=== PATIENT | female | born 1955 | race Caucasian/White ===

== ENCOUNTER 2016-05-18 15:27 | Day surgery (SDC) | payer OTHER ==
[~2016-05-18] VITALS: Ht 157.5 cm; Wt 64.3 kg
[~2016-05-18 15:27] MED LIST: HYDR-3498 PO; ONDA-43 PO; TRAM50TA2 PO
[2016-05-18 16:03] VITALS: Ht 157.5 cm; Wt 64.3 kg
[2016-05-18 16:19] VITALS: BP 122/68; PULSE 93; RESP 18
[2016-05-18] MEDS ORDERED: MIDAZOLAM 1 MG/ML 2 ML INJ ONE ×2 (17:13→17:14)
[2016-05-18] MEDS ORDERED: FENTAnyl 50 MCG/ML VIAL ONE (17:14)
[2016-05-18 17:35] VITALS: BP 118/63; PULSE 87; RESP 18
--- NOTE | 2016-05-18 18:53 | GILP ---
DATE OF PROCEDURE: NAME OF PROCEDURE: Colonoscopy. SURGEON: Jace Blake MD PREOPERATIVE DIAGNOSIS: Screening colonoscopy. POSTOPERATIVE DIAGNOSES: 1. Colonoscopy all the way to the cecum. 2. Poor prep making the exam suboptimal. 3. Internal hemorrhoids. 4. No gross neoplasm was identified. INDICATION FOR THE PROCEDURE: Ms. Cristina Gamez is a 60-year-old female patient who was scheduled for screening colonoscopy. The procedure and possible complications are well explained to the patient. The patient understood and consented to the procedure. DESCRIPTION OF PROCEDURE: Under the influence of fentanyl and Versed, the colonoscope was carefully introduced in the rectum and, under direct vision, it was advanced all the way to the cecum. FINDINGS: The patient had poor prep making the exam suboptimal. The patient was noted to have inte rnal hemorrhoids. No gross neoplasm was identified. She tolerated the procedure very well and there was no complication from the procedure. At the end of the procedure, she was awake with stable vital signs and she was discharged home to the care of h er family. IMPRESSION: 1. Colonoscopy all the way to the cecum. 2. Poor prep making the exam somewhat suboptimal. 3. Internal hemorrhoids. 4. No gross neoplasm was identified. PLAN: The patient will need repeat colonoscopy with better preparation in 2 years. Dictated By: JACE ZELAYA/NIKKI Conf#: [id number] DID#: [id number] CC: JACE BLAKE MD;*EndCC*
== END 2016-05-18 17:54 | disposition home or self-care (01) ==
LOC: GIL 15:27
PROVIDERS: ATTEND Internal Medicine Gastroenterology
DX: Z12.11 Encounter for screening for malignant neoplasm of colon (principal); K64.8 Other hemorrhoids
CPT/HCPCS: 45378; J2250; J3010

== ENCOUNTER 2016-08-14 09:03 | Emergency (ER) | payer OTHER ==
[~2016-08-14] VITALS: Ht 160 cm; Wt 62.0 kg
[2016-08-14 09:07] VITALS: Ht 160 cm; Wt 62.0 kg
--- NOTE | 2016-08-14 10:29 | RADRPT ---
PROCEDURE: XR Chest. CLINICAL INDICATION: Shortness of breath TECHNIQUE: A single AP view of the chest was obtained. COMPARISON: Chest x-ray dated 02/24/2015 FINDINGS: No focal airspace opacification, pleural effusion or pneumothorax is seen. The cardiomediastinal si lhouette is within normal limits for size. The osseous structures are unremarkable. IMPRESSION: No radiographic evidence of acute cardiopulmonary disease. RPTAT: HH .Deja Ray MD, MD Date Time Electronically viewed and signed by .Deja Ray MD, on 08/14/2016 10:29 .G/
--- NOTE | 2016-08-14 10:36 | ERD ---
ER Documentation Chief Complaint Date/Time DATE: 08/14/16 TIME: 10:34 Chief Complaint cough x 3 weeks HPI This a 61-year-old female who presents to the emergency department today complaining of cough for the past 3 weeks. Patient states the cough is worse at night however she is tried TheraFlu with no improvement in symptoms. Denies any fevers or chills. Denies any sore throat. Denies any sick contacts, foreign travel or prolonged travel. ROS All systems reviewed and are negative except as per history of present illness. Medications Home Meds Active Scripts Cetirizine Hcl* (Zyrtec*) 10 Mg Capsule, 10 MG PO DAILY, #14 TAB.CHEW Prov:BASILIO MONROY PA-C 08/14/16 Fluticasone Propionate (Flonase Allergy Relief) 9.9 Ml [place].susp, 2 SPRAY NASAL DAILY, #1 BOTTLE TO EACH NOSTRIL Prov:BASILIO MONROY PA-C 08/14/16 Guaifenesin-Dextromethorphan* (Robitussin* DM) 100MG/10MG/5ML Syrup, 10 ML PO Q6H Y for COUGH for 5 Days, ML Prov:BASILIO MONROY PA-C 08/14/16 Azithromycin* (Zithromax*) 250 Mg Tablet, 250 MG PO .ZPACK DIRECTED, #6 TAB TAKE 500 MG (2 TABS) THE FIRST DAY THEN 250 MG (1 TAB) DAYS 2-5 Prov:BASILIO MONROY PA-C 08/14/16 Reported Medications [None] No Conflict Check 05/18/16 Allergies Allergies: Coded Allergies: Penicillins (Verified Allergy, Mild, RASH, 06/12/15) PMhx/Soc History of Surgery: Yes (CHOLEYCSTECTOMY, C Section.) Anesthesia Reaction: No Hx Neurological Disorder: No Hx Respiratory Disorders: No Hx Cardiac Disorders: No Hx Psychiatric Problems: No Hx Miscellaneous Medical Probl: No Hx Alcohol Use: No Hx Substance Use: No Hx Tobacco Use: No Smoking Status: Never smoker Physical Exam Vitals Vital Signs Date Time Temp Pulse Resp B/P Pulse Ox O2 Delivery O2 Flow Rate FiO2 08/14/16 09:07 97.8 99 20 150/56 96 Physical Exam Const: NAD Head: Atraumatic Eyes: Normal Conjunctiva ENT: Normal External Ears, Nose and Mouth. Neck: Full range of motion..~ No meningismus. Resp: Clear to auscultation bilaterally. No absent breath sounds. No wheezing. Cardio: Regular rate and rhythm, no murmurs Skin: No petechiae or rashes Back: No midline or flank tenderness Ext: No cyanosis, or edema Neur: Awake and alert Psych: Normal Mood and Affect Results 24 hrs DIAGNOSTIC IMAGING REPORT Patient: ITZEL HUTCHISON : 1955 Age: 61 Sex: F MR #: [id number] DOS: 08/14/16 0000 Ordering MD: BASILIO MONROY PA-C Location: [facility] Room/Bed: PROCEDURE: XR Chest. CLINICAL INDICATION: Shortness of breath TECHNIQUE: A single AP view of the chest was obtained. COMPARISON: Chest x-ray dated 02/24/2015 FINDINGS: No focal airspace opacification, pleural effusion or pneumothorax is seen. The cardiomediastinal silhouette is within normal limits for size. The osseous structures are unremarkable. IMPRESSION: No radiographic evidence of acute cardiopulmonary disease. RPTAT: HH .Deja Ray MD, Date Time Electronically viewed and signed by .Deja Ray MD, MD on 08/14/2016 10 :29 .G/ CC: BASILIO MONROY PA-C Procedures/[facility] This a 61-year-old female who presents the emergency department today complaining of cough for the past 3 weeks. Given patient's age and complaints of cough for the past 3 weeks I did obtain a chest x-ray Chest x-ray is negative. There is no radiographic evidence of acute cardiopulmonary disease. No focal airspace opacification, pleural effusion or pneumothorax Patient is afebrile and otherwise well-appearing. She is not tachycardic and her oxygen saturation is 96%. She does not smoke cigarettes. Low suspicion for PE. Symptoms at this time is consistent with cough possibly related to bronchitis versus viral URI versus pertussis. I have low suspicion for strep pharyngitis , peritonsillar abscess, retropharyngeal abscess, otitis media, PNA, sinusitis, abscess, meningitis, sepsis, or other acute infectious bacterial process. Patient understood and agreed with the plan. Given patient's duration of symptoms I will treat her with azithromycin in addition to Robitussin, Zyrtec and Flonase. At this time the patient is stable for discharge and outpatient management. Patient should follow up with their PCP in the next 1-2 days. They may return to the emergency department sooner for any persistent or worsening of symptoms. Patient understood and agreed with the plan. Departure Diagnosis: Primary Impression: Cough Condition: Fair BASILIO MONROY PA-C August 14, 2016 10:36
[2016-08-14] MEDS ORDERED: AZIT250T94 PO (10:38)
[2016-08-14] MEDS ORDERED: UDROBDM PO (10:39)
[2016-08-14] MEDS ORDERED: FLUT9.9S NASAL (10:39)
[2016-08-14] MEDS ORDERED: CETI10CA PO (10:39)
== END 2016-08-14 10:50 | disposition home or self-care (01) ==
LOC: FTE 09:03
DX: R05 Cough (principal)
CPT/HCPCS: 71010; Z7502

== ENCOUNTER 2016-08-19 07:45 | Emergency (ER) | payer OTHER ==
[~2016-08-19] VITALS: Ht 157.5 cm; Wt 65.0 kg
[~2016-08-19 07:45] MED LIST changes: +AZIT250T94 PO; +CETI10CA PO; +FLUT9.9S NASAL; -HYDR-3498 PO; -ONDA-43 PO; -TRAM50TA2 PO; +UDROBDM PO
[2016-08-19 07:48] VITALS: Ht 157.5 cm; Wt 65.0 kg
[2016-08-19] MEDS ORDERED: ALBUTEROL 0.083% (NEB) 2.5 MG/3 ML AMP HHN STA (08:13)
[2016-08-19] MEDS ORDERED: IPRATROPIUM (NEB) 0.5 MG/2.5 ML AMP HHN ONE (08:30)
--- NOTE | 2016-08-19 09:48 | RADRPT ---
PROCEDURE: Chest Radiograph. CLINICAL INDICATION: Shortness of breath TECHNIQUE: Single frontal chest radiograph. COMPARISON: Chest radiograph 02/24/2015 FINDINGS: The cardiomediastinal silhouette is within normal limits. No infiltrate or effusion is seen. Th e bones are intact. IMPRESSION: 1. Unremarkable chest radiograph. RPTAT: KK .Scooter Mosqueda MD, MD Date Time Electronically viewed and signed by .Scooter Mosqueda MD, on 08/19/2016 09:48 .B/
--- NOTE | 2016-08-19 09:49 | RADRPT ---
PROCEDURE: X-ray soft tissue neck. CLINICAL INDICATION: Foreign body sensation. TECHNIQUE: Two views of the soft tissues of the neck are available for review. COMPARISON: None available FINDINGS: The epiglottis is normal. The airway is clear. The oropharynx appears normal. No radiopaque foreign bodies are identified. No other abnormality is seen. The osseous structures are unremarkable. IMPRESSION: 1. No evidence of radiopaque foreign body. RPTAT: KK .Scooter Mosqueda MD, Date Time Electronically viewed and signed by .Scooter Mosqueda MD, on 08/19/2016 09:49 .B/
[2016-08-19] MEDS ORDERED: D-ME473S18 PO (10:03)
[2016-08-19] MEDS ORDERED: MED4DP PO (10:03)
[2016-08-19] MEDS ORDERED: ALBU8.5H3 INH (10:03)
--- NOTE | 2016-08-19 10:08 | ERD ---
ER Documentation Chief Complaint Date/Time DATE: 08/19/16 TIME: 10:06 Chief Complaint cough x 2 weeks, seen here tuesday HPI This is a 61-year-old female presents to the ER with a cough for the last 2 weeks. She states she is here in Tuesday, tried the azithromycin however did not work. Cough is productive, worse at night. Patient states that she feels very tired secondary to coughing a lot. She does not have any fevers or chills. She does not have a sore throat or ear pain. Patient does not have any chest pain or shortness of breath. She does admit to some throat discomfort and states that she feels as if there is something in her throat. She does not have any problems swallowing. ROS 12 point review of systems was done, all negative except per HPI. Medications Home Meds Active Scripts Albuterol Sulfate* (Proair HFA*) 8.5 Gm Hfa.aer.ad, 2 PUFF INH Q4, #1 INHALER Prov:FANTASMA CURIEL 08/19/16 Dextromethorphan Hb-Promethazine Hcl (Promethazine DM Syrup) 473 Ml Syrup, 10 ML PO Q6H Y for COUGH, #4 OZ Prov:FANTASMA CURIEL 08/19/16 Methylprednisolone* (Medrol* DOSE PACK) 4 Mg/Dose-Pack Tab.ds.pk, 4 MG PO . DIRECTED for 6 Days, PACKET Prov:FANTASMA CURIEL 08/19/16 Cetirizine Hcl* (Zyrtec*) 10 Mg Capsule, 10 MG PO DAILY, #14 TAB.CHEW Prov:BASILIO MNOROY PA-C 08/14/16 Fluticasone Propionate (Flonase Allergy Relief) 9.9 Ml [place].susp, 2 SPRAY NASAL DAILY, #1 BOTTLE TO EACH NOSTRIL Prov:BASILIO MONROY PA-C 08/14/16 Guaifenesin-Dextromethorphan* (Robitussin* DM) 100MG/10MG/5ML Syrup, 10 ML PO Q6H Y for COUGH for 5 Days, ML Prov:BASILIO MONROY PA-C 08/14/16 Azithromycin* (Zithromax*) 250 Mg Tablet, 250 MG PO .ZPACK DIRECTED, #6 TAB TAKE 500 MG (2 TABS) THE FIRST DAY THEN 250 MG (1 TAB) DAYS 2-5 Prov:BASILIO MONROY PA-C 08/14/16 Reported Medications [None] No Conflict Check 05/18/16 Allergies Allergies: Coded Allergies: Penicillins (Verified Allergy, Mild, RASH, 08/19/16) PMhx/Soc History of Surgery: Yes (CHOLEYCSTECTOMY, C Section.) Anesthesia Reaction: No Hx Neurological Disorder: No Hx Respiratory Disorders: No Hx Cardiac Disorders: No Hx Psychiatric Problems: No Hx Miscellaneous Medical Probl: No Hx Alcohol Use: No Hx Substance Use: No Hx Tobacco Use: No Smoking Status: Never smoker Physical Exam Vitals Vital Signs Date Time Temp Pulse Resp B/P Pulse Ox O2 Delivery O2 Flow Rate FiO2 08/19/16 08:34 102 18 98 21 08/19/16 07:48 97.0 102 18 132/62 97 Physical Exam GENERAL: The patient is well-developed, well-nourished, in no acute distress. NECK: Cervical spine is non tender with no step off. Supple, no nuchal rigidity HEENT: Atraumatic. Pupils equal, round and reactive to light. Extraocular muscles are grossly intact. Conjunctivae pink, no discharge. Bilateral tympanic membranes are clear with no evidence of erythema, effusion or dulling of the light reflex. Tonsilar erythema with no exudates or uvular deviation. Clear rhinorrhea. RESPIRATORY: Expiratory wheezes in all lung grace. No rales rhonchi or crackles there is no inspiratory stridor or retractions. No flaring/retractions. HEART: Regular rate and rhythm. No murmurs, clicks, rubs or gallops. NEUROLOGIC: Alert and oriented. SKIN: There is no rash. The skin is warm and dry. Results 24 hrs Current Medications Medications (Trade) Dose Ordered Sig/Thomas Route PRN Reason Start Time Stop Time Status Last Admin Dose Admin Albuterol (Proventil 0.083% (Neb)) 5 mg ONCE STAT HHN 08/19/16 08:13 08/19/16 08:15 DC 08/19/16 08:32 Ipratropium [place] (Atrovent 0.02% (Neb)) 0.5 mg ONCE ONCE HHN 08/19/16 08:30 08/19/16 08:31 DC 08/19/16 08:32 Procedures/MDM Patient was stable throughout ER patient was given a nebulizing treatment and upon reexamination wheezing was improved and patient stated she felt significantly better. Differential diagnosis includes but is not limited to; Viral URI, allergic rhinitis, bronchitis, pertussis,pneumonia. This is likely viral in etiology. Patient likely has bronchitis with wheezing. Clinical suspicion for pneumonia is low as patient appears well, is not hypoxic or in any respiratory distress. Additionally, patients physical examination is benign. Plan was discussed with patient they understand and agree. Patient needs to follow up with PCP in 1-2 days or return to ER sooner if symptoms worsen. Departure Diagnosis: Primary Impression: Bronchitis Condition: Stable Patient Instructions: Bronchitis With Wheezing (Adult) Additional Instructions: Llame al doctor MAANA y hever erlinda MALU PARA DENTRO DE 1-2 CHENG.Dgale a la secretaria que nosotros le instruimos hacer esta malu.Avise o llame si lópez condicin se empeora antes de la malu. Regresa aqui si peor o no mejor. FANTASMA CURIEL August 19, 2016 10:08
[2016-08-19 10:23] VITALS: BP 145/80; PULSE 90; RESP 20; TEMP 98.1
== END 2016-08-19 10:23 | disposition home or self-care (01) ==
LOC: FTE 07:45
DX: J40 Bronchitis, not specified as acute or chronic (principal)
CPT/HCPCS: 70360; 71010; 94664; Z7502; Z7610

== ENCOUNTER 2018-07-07 16:45 | Emergency (ER) | payer OTHER ==
[~2018-07-07] VITALS: Ht 154.9 cm; Wt 65.9 kg
[~2018-07-07 16:45] MED LIST changes: +ALBU8.5H8 INH; +AZIT250T PO; -AZIT250T94 PO; +D-ME473S18 PO; +GUAI5SYR2 PO; +MED4DP PO; -UDROBDM PO
[2018-07-07 16:50] VITALS: BP 138/63; PULSE 89; RESP 18; Ht 154.9 cm; Wt 65.9 kg
[2018-07-07] MEDS ORDERED: KETOROLAC 15 MG INJ IM STA (19:33)
[2018-07-07] MEDS ORDERED: IBUP-1542 PO (21:27)
[2018-07-07] MEDS ORDERED: ACET-141 PO (21:27)
--- NOTE | 2018-07-07 21:32 | ERD ---
ER Documentation Chief Complaint Chief Complaint R sided hip pain s/p slip and fall yesterday HPI 63-year-old female presents for right hip pain status post slip and fall yesterday. She states that she was walking over some wet ground and slipped. She fell onto her right side. She states that she had 8 out of 10 pain. She is able to ambulate however gingerly. She took some Motrin at home with mild relief. Denies head injury. Denies significant past medical history. ROS All systems reviewed and are negative except as per history of present illness. Medications Home Meds Active Scripts Acetaminophen* (Acetaminophen*) 500 MG Extra Strength Tablet, 500 MG PO Q4H PRN for PAIN AND OR ELEVATED TEMP, #30 TAB Prov:ANTONIOJOELLEN 07/07/18 Ibuprofen* (Ibuprofen*) 600 Mg Tablet, 600 MG PO Q6H PRN for PAIN, #30 TAB Prov:ANTONIOJOELLEN CROCKETT 07/07/18 Albuterol Sulfate* (Proair HFA*) 8.5 Gm Hfa.aer.ad, 2 PUFF INH Q4, #1 INHALER Prov:FANTASMA CURIEL 08/19/16 Dextromethorphan Hb-Promethazine Hcl (Promethazine DM Syrup) 473 Ml Syrup, 10 ML PO Q6H PRN for COUGH, #4 OZ Prov:FANTASMA CURIEL 08/19/16 Methylprednisolone* (Medrol* DOSE PACK) 4 Mg/Dose-Pack Tab.ds.pk, 4 MG PO . DIRECTED for 6 Days, PACKET Prov:FANTASMA CURIEL 08/19/16 Cetirizine Hcl* (Zyrtec*) 10 Mg Capsule, 10 MG PO DAILY, #14 TAB.CHEW Prov:BASILIO MONROY PA-C 08/14/16 Fluticasone Propionate (Flonase Allergy Relief) 9.9 Ml [place].susp, 2 SPRAY NASAL DAILY, #1 BOTTLE TO EACH NOSTRIL Prov:BASILIO MONROY PA-C 08/14/16 Guaifenesin-Dextromethorphan* (Robitussin* DM) 100MG/10MG/5ML Syrup, 10 ML PO Q6H PRN for COUGH for 5 Days, ML Prov:BASILIO MONROY PA-C 08/14/16 Azithromycin* (Zithromax*) 250 Mg Tablet, 250 MG PO .HammadPACK DIRECTED, #6 TAB TAKE 500 MG (2 TABS) THE FIRST DAY THEN 250 MG (1 TAB) DAYS 2-5 Prov:BASILIO MONROY PA-C 08/14/16 Reported Medications [None] No Conflict Check 05/18/16 Allergies Allergies: Coded Allergies: Penicillins (Verified Allergy, Mild, RASH, 08/19/16) PMhx/Soc History of Surgery: Yes (CHOLEYCSTECTOMY, C Section.) Anesthesia Reaction: No Hx Neurological Disorder: No Hx Respiratory Disorders: No Hx Cardiac Disorders: No Hx Psychiatric Problems: No Hx Miscellaneous Medical Probl: No Hx Alcohol Use: No Hx Substance Use: No Hx Tobacco Use: No Smoking Status: Never smoker Physical Exam Vitals Vital Signs Date Temp Pulse Resp B/P (MAP) Pulse Ox O2 O2 Flow FiO2 Time Delivery Rate 07/07/18 97.8 89 18 138/63 100 16:50 (88) Physical Exam Const: No acute distress Resp: Clear to auscultation bilaterally, bilateral dorsalis pedis pulses intact Cardio: Regular rate and rhythm, no murmurs Skin: No petechiae or rashes Back: No midline or flank tenderness Ext: Right hip tenderness palpation diffusely, there is 4 out of 5 muscle strength of the right lower extremity due to pain, 5 out of 5 strength left lower extremity Neur: Awake and alert, bilateral lower extremity incision intact Psych: Normal Mood and Affect Results 24 hrs Current Medications Medications Dose Sig/Thomas Start Time Status Last (Trade) Ordered Route PRN Stop Time Admin Dose Reason Admin Ketorolac 15 mg ONCE STAT 07/07/18 DC 07/07/18 Tromethamine IM 19:33 19:42 (Toradol) 07/07/18 19:34 Procedures/MDM Medical Decision Making: Differential diagnosis includes but not limited to fracture, dislocation, muscle strain, ligamentous sprain. Patient appeared well on physical exam. There was tenderness over the right hip Patient was neurovascularly intact ED course: Patient was given Toradol. Symptoms improved with treatment. Imaging: X-ray right hip 2V Interpreted by me: Bones: No fracture Joints: No dislocation Foreign body: None Prescription(s): Patient given prescription for supportive medication(s). Possibly has a hip strain Patient advised to follow up with PCP in 1-2 days. Patient advised to return to ED for new or worsening symptoms. Patient stable on discharge from the ED. Disclaimer: Inadvertent spelling and grammatical errors are likely due to EHR/dictation software use and do not reflect on the overall quality of patient care. Also, please note that the electronic time recorded on this note does not necessarily reflect the actual time of the patient encounter. Departure Diagnosis: Primary Impression: Hip injury Encounter type: initial encounter Laterality: right Qualified Codes: S79.911A - Unspecified injury of right hip, initial encounter Condition: Fair Patient Instructions: Hip Strain Referrals: EVAN GLEZ MD (PCP) Additional Instructions: Llame al doctor MAANA y hever erlinda MALU PARA DENTRO DE 1-2 CHENG.Dgale a la secretaria que nosotros le instruimos hacer esta malu.Avise o llame si lópez condicin se empeora antes de la malu. Regresa aqui si peor o no mejor. JOELLEN ALVAREZ DO Jul 07, 2018 21:32
== END 2018-07-07 21:42 | disposition home or self-care (01) ==
LOC: FTE 16:45
DX: S79.911A Unspecified injury of right hip, initial encounter (principal); W01.0XXA Fall on same level from slipping, tripping and stumbling without subsequent striking against object, initial encounter; Y92.9 Unspecified place or not applicable
CPT/HCPCS: 73510; 96372; J1885; Z7502